=== PATIENT | female | born 1975 | race Caucasian/White ===

== ENCOUNTER 2017-02-19 10:39 | Emergency (ER) | payer OTHER ==
--- NOTE | 2017-02-19 11:23 | ED ---
General Adult HPI - General Chief complaint: Skin/Abscess/Foreign Body Stated complaint: groin pain Time Seen by Provider: 02/19/17 11:14 Source: patient Mode of arrival: ambulatory Limitations: no limitations - History of Present Illness Initial comments: This 41-year-old white female presents complaining of some pains, swelling, and redness present to the left proximal anteromedial leg. It is been present for 3 days. She denies any known inciting incidents or bug bites. It causes her a moderate amount of pain. She denies any previous similar incidents. She denies any fevers or chills. She states that it feels like she has some slight swelling and tenderness in her left groin area as well. No other complaints or modifying factors. - Related Data Home Medications Medication Instructions Recorded Confirmed Cetirizine HCl [Zyrtec] 10 mg PO DAILY 02/19/17 02/19/17 metroNIDAZOLE [Flagyl] 500 mg PO BID 02/19/17 02/19/17 Previous Rx's Medication Instructions Recorded Sulfamethox-Tmp 800-160Mg [Bactrim 1 tab PO Q12HR #20 tab 02/19/17 DS 800-160 mg] traMADol HCl [Ultram] 50 - 100 mg PO Q6H PRN #15 tab 02/19/17 Allergies Allergy/AdvReac Type Severity Reaction Status Date / Time ibuprofen Allergy Swelling Verified 02/19/17 11:07 amoxicillin AdvReac DIZZINESS Verified 02/19/17 11:07 Review of Systems ROS Statement: Those systems with pertinent positive or pertinent negative responses have been documented in the HPI. ROS Other: All systems not noted in ROS Statement are negative. Past Medical History Past Medical History: No Reported History History of Any Multi-Drug Resistant Organisms: None Reported Past Surgical History: Uterine Ablation Additional Past Surgical History / Comment(s): anabella xiong Past Psychological History: No Psychological Hx Reported Smoking Status: Never smoker Past Alcohol Use History: None Reported Past Drug Use History: None Reported General Exam Limitations: no limitations General appearance: alert, in no apparent distress Head exam: Present: atraumatic, normocephalic Eye exam: Absent: conjunctival injection Neck exam: Present: normal inspection Extremities exam: Present: tenderness (There is some tenderness noted to the left proximal anteromedial leg), normal capillary refill. Absent: pedal edema, joint swelling, calf tenderness Neurological exam: Present: alert, oriented X3 Psychiatric exam: Present: normal affect, normal mood Skin exam: Present: intact, rash (There is an erythematous rash noted to the left proximal anteromedial leg. There is some associated ropiness upon palpation in the middle of the erythema likely consistent with a superficial thrombophlebitis. No fluctuance is identified.) Course Vital Signs 02/19/17 10:51 Temperature 99.0 F Pulse Rate 104 H Respiratory 20 Rate Blood Pressure 116/78 O2 Sat by Pulse 97 Oximetry Medical Decision Making - Medical Decision Making The patient was seen and examined. All diagnostics were reviewed. The ultrasound does not show any evidence of DVT. They do note a 2 cm cystic vascular structure as well as some superficial varicose veins and enlarged lymph nodes. Overall, is felt that the patient likely does have a superficial thrombophlebitis. The possibility of some cellulitis is certainly possible as well. It is felt as though she is stable for discharge and that she should follow-up with vascular surgery for recheck. Disposition Clinical Impression: Superficial thrombophlebitis, Cellulitis Disposition: HOME SELF-CARE Condition: Good Instructions: Superficial Thrombophlebitis (ED), Cellulitis (ED) Additional Instructions: Please take an aspirin daily. Prescriptions: Sulfamethox-Tmp 800-160Mg [Bactrim DS 800-160 mg] 1 tab PO Q12HR #20 tab traMADol HCl [Ultram] 50 - 100 mg PO Q6H PRN #15 tab PRN Reason: Pain Referrals: Nonstaff,Physician [Primary Care Provider] - 1-2 days Abdulaziz Long MD [STAFF PHYSICIAN] - 02/22/17 Time of Disposition: 13:04
--- NOTE | 2017-02-19 12:49 | US ---
EXAMINATION TYPE: US venous doppler duplex LE LT DATE OF EXAM: 02/19/2017 12:28 PM COMPARISON: NONE CLINICAL HISTORY: Pain. left groin and upper thigh swelling x 3 days. SIDE PERFORMED: Left TECHNIQUE: The lower extremity deep venous system is examined utilizing real time linear array sonog kaitlyn with graded compression, doppler sonography and color-flow sonography. VESSELS IMAGED: External Iliac Vein (EIV) Common Femoral Vein Deep Femoral Vein Greater Saphenous Vein * Femoral Vein Popliteal Vein Small Saphenous Vein * Proximal Calf Veins (* superficial vessels) Superficial varicosities are noted. Left Leg: Negative for DVT cystic structure left groin =2.6 x 2.2 x 1.4 cm with some vascularity. This was seen at area of swell ing. Also noted, areas of dilated vessels in left upper thigh at area of swelling. IMPRESSION: Grayscale, color doppler, spectral doppler imaging performed of the deep veins of the lo wer extremities. There is normal flow, compressibility, vascular waveforms. No evident deep venous thrombosis. Possible borderline enlarged left groin node. Varicose vein.
[2017-02-19 13:11] VITALS: BP 128/73; PULSE 85; RESP 17; TEMP 98.9
== END 2017-02-19 13:20 | disposition home or self-care (01) ==
LOC: EC 10:39
DX: I80.02 Phlebitis and thrombophlebitis of superficial vessels of left lower extremity (principal); L03.314 Cellulitis of groin; Z79.899 Other long term (current) drug therapy; Z88.0 Allergy status to penicillin; Z88.6 Allergy status to analgesic agent
CPT/HCPCS: 99284

== ENCOUNTER 2017-02-27 01:27 | Inpatient (IN) | payer OTHER ==
[2017-02-27] MEDS ORDERED: SODIUM CHLORIDE 0.9% 1,000 ML IV ONE (01:56)
[2017-02-27] MEDS ORDERED: KETOROLAC 30 MG/ML 1 ML VIAL IVP STA (01:56)
[2017-02-27 02:34] LABS: ALT 64 U/L (9-52); AST 36 U/L (14-36); Alkaline Phosphatase 128 U/L (38-126); Anion Gap 10 mmol/L; Blood Urea Nitrogen 11 mg/dL (7-17); Calcium 9.3 mg/dL (8.4-10.2); Carbon Dioxide 21 mmol/L (22-30); Chloride 106 mmol/L (98-107); Glucose 94 mg/dL (74-99); Non-African American GFR(MDRD) >60 (>60 ml/min/1.73 sqM); Potassium 4.1 mmol/L (3.5-5.1); Sodium 137 mmol/L (137-145); Total Bilirubin 0.3 mg/dL (0.2-1.3); Total Protein 6.4 g/dL (6.3-8.2)
[2017-02-27 02:36] LABS: Basophils % (A) 0 %; CH 32.5; CHCM 34.2; Eosinophils # (A) 0.5 k/uL (0-0.7); Eosinophils % (A) 6 %; HCT 35.9 % (34.0-46.0); HDW 2.12; HGB 12.1 gm/dL (11.4-16.0); Luc # (Auto) 0.22; Luc % (Auto) 3; Lymphocytes # (A) 2.2 k/uL (1.0-4.8); Lymphocytes % (A) 25 %; MCH 32.1 pg (25.0-35.0); MCHC 33.6 g/dL (31.0-37.0); MCV 95.4 fL (80.0-100.0); Mean Platelet Volume 7.5; Monocytes # (A) 0.5 k/uL (0-1.0); Monocytes % (A) 6 %; Neutrophils # (A) 5.5 k/uL (1.3-7.7); Neutrophils % (A) 61 %; RBC 3.77 m/uL (3.80-5.40); RDW 12.9 % (11.5-15.5); WBC (Perox) 9.56
[2017-02-27] MEDS ORDERED: IV VANCOMYCIN PER PHARMACY 1 EACH MISC MISCELLANE PRN (02:53)
[2017-02-27] MEDS ORDERED: VANCOMYCIN 1,750 MG in SODIUM CHLORIDE 0.9% 250 ML IVPB SCH (04:00)
--- NOTE | 2017-02-27 04:19 | ED ---
Extremity Problem HPI - General Source: patient, family Mode of arrival: ambulatory <Maranda Prieto - Last Filed: 02/27/17 04:56> <Arvind Walter - Last Filed: 02/27/17 06:18> - General Chief complaint: Extremity Problem,Nontraumatic Stated complaint: leg infection Time Seen by Provider: 02/27/17 01:44 - History of Present Illness Initial comments: 41-year-old female patient presents to emergency department today for evaluation of erythema, swelling, and possible abscess to the left thigh. Patient states that symptoms started on 02/19/2017. States that the area was swollen and red, so she presented here for evaluation. At that time an ultrasound was done and she was diagnosed with superficial thrombophlebitis with cellulitis. She states that she has been taking her Bactrim as directed, she states she has 3 days left. States she has been taking aspirin as directed by the emergency physician. She states that the area has developed 3 abscesses , one broke open and was draining pus today. She states that the area is more painful and tender to touch. She states she does have an appointment with a vascular surgeon tomorrow for further evaluation however with the new drainage she was concerned about waiting. She states that she feels generally unwell, more tired, and rundown. Patient denies any recent fever, chills, shortness of breath, chest pain, abdominal pain, nausea, vomiting, diarrhea, constipation, back pain, numbness, tingling, weakness, hematuria, headache, visual changes, or any other complaints. (Maranda Prieto) - Related Data Home Medications Medication Instructions Recorded Confirmed Cetirizine HCl [Zyrtec] 10 mg PO DAILY 02/19/17 02/19/17 metroNIDAZOLE [Flagyl] 500 mg PO BID 02/19/17 02/19/17 Previous Rx's Medication Instructions Recorded Sulfamethox-Tmp 800-160Mg [Bactrim 1 tab PO Q12HR #20 tab 02/19/17 DS 800-160 mg] traMADol HCl [Ultram] 50 - 100 mg PO Q6H PRN #15 tab 02/19/17 Allergies Allergy/AdvReac Type Severity Reaction Status Date / Time ibuprofen Allergy Swelling Verified 02/19/17 11:07 amoxicillin AdvReac DIZZINESS Verified 02/19/17 11:07 Review of Systems ROS Other: All systems not noted in ROS Statement are negative. <Maranda Prieto - Last Filed: 02/27/17 04:56> ROS Other: All systems not noted in ROS Statement are negative. <Arvind Walter - Last Filed: 02/27/17 06:18> ROS Statement: Those systems with pertinent positive or pertinent negative responses have been documented in the HPI. Past Medical History Past Medical History: No Reported History History of Any Multi-Drug Resistant Organisms: None Reported Past Surgical History: Uterine Ablation Additional Past Surgical History / Comment(s): marina-anabella lewis Past Psychological History: No Psychological Hx Reported Smoking Status: Never smoker Past Alcohol Use History: None Reported Past Drug Use History: None Reported <Maranda Prieto - Last Filed: 02/27/17 04:56> General Exam General appearance: alert, in no apparent distress Eye exam: Present: normal appearance, PERRL, EOMI. Absent: scleral icterus, conjunctival injection, periorbital swelling ENT exam: Present: normal exam, normal oropharynx, mucous membranes moist Neck exam: Present: normal inspection. Absent: tenderness, meningismus, lymphadenopathy Respiratory exam: Present: normal lung sounds bilaterally. Absent: respiratory distress, wheezes, rales, rhonchi, stridor Cardiovascular Exam: Present: regular rate, normal rhythm, normal heart sounds. Absent: systolic murmur, diastolic murmur, rubs, gallop, clicks Extremities exam: Present: full ROM, tenderness, normal capillary refill, other (Anteromedial aspect of the left upper leg exhibits a large area of erythema, swelling, and 3 areas of abscess. There is some rope type induration noted in area of erythema. One area of abscess is draining purulent bloody drainage. Enlarged palpable lymph node to the left inguinal region.). Absent: normal inspection, pedal edema, joint swelling, calf tenderness Neurological exam: Present: alert, oriented X3, CN II-XII intact Psychiatric exam: Present: normal affect, normal mood Skin exam: Present: warm, dry, intact, normal color. Absent: rash <Maranda Prieto - Last Filed: 02/27/17 04:56> Medical Decision Making - Lab Data Result diagrams: 02/27/17 02:16 02/27/17 02:16 <Maranda Prieto - Last Filed: 02/27/17 04:56> - Lab Data Result diagrams: 02/27/17 02:16 02/27/17 02:16 <Arvind Walter - Last Filed: 02/27/17 06:18> - Medical Decision Making 41-year-old female patient presented for evaluation of large area of erythema, swelling, and abscess to the left nicko-medial thigh. Area does appear to be a large abscess. Drainage from abscess was cultured. Patient was started on vancomycin. Labs were obtained, white blood cell count is normal. Blood cultures were obtained. My attending Dr. Walter did speak to general surgery Dr. Russo who will admit the patient for further evaluation. (Maranda Prieto) I saw this patient in conjunction with the physician drug safety assistant. I performed independent history and physical exam. Agree with case management. (Arvind Walter) - Lab Data Lab Results 02/27/17 02/27/17 Range/Units 02:16 02:16 WBC 9.0 (3.8-10.6) k/uL RBC 3.77 L (3.80-5.40) m/uL Hgb 12.1 (11.4-16.0) gm/dL Hct 35.9 (34.0-46.0) % MCV 95.4 (80.0-100.0) fL MCH 32.1 (25.0-35.0) pg MCHC 33.6 (31.0-37.0) g/dL RDW 12.9 (11.5-15.5) % Plt Count 393 (150-450) k/uL Neutrophils % 61 % Lymphocytes % 25 % Monocytes % 6 % Eosinophils % 6 % Basophils % 0 % Neutrophils # 5.5 (1.3-7.7) k/uL Lymphocytes # 2.2 (1.0-4.8) k/uL Monocytes # 0.5 (0-1.0) k/uL Eosinophils # 0.5 (0-0.7) k/uL Basophils # 0.0 (0-0.2) k/uL Sodium 137 (137-145) mmol/L Potassium 4.1 (3.5-5.1) mmol/L Chloride 106 (98-107) mmol/L Carbon Dioxide 21 L (22-30) mmol/L Anion Gap 10 mmol/L BUN 11 (7-17) mg/dL Creatinine 0.80 (0.52-1.04) mg/dL Est GFR (MDRD) Af Amer >60 (>60 ml/min/1.73 sqM) Est GFR (MDRD) Non-Af >60 (>60 ml/min/1.73 sqM) Glucose 94 (74-99) mg/dL Calcium 9.3 (8.4-10.2) mg/dL Total Bilirubin 0.3 (0.2-1.3) mg/dL AST 36 (14-36) U/L ALT 64 H (9-52) U/L Alkaline Phosphatase 128 H (38-126) U/L Total Protein 6.4 (6.3-8.2) g/dL Albumin 3.6 (3.5-5.0) g/dL Disposition Decision to Admit Reason: Admit from EC Decision Date: 02/27/17 Decision Time: 04:57 <Maranda Prieto - Last Filed: 02/27/17 04:56> <Arvind Walter - Last Filed: 02/27/17 06:18> Clinical Impression: Abscess of left thigh Disposition: ADMITTED IP TO THIS [facility] Condition: Fair
[2017-02-27] MEDS ORDERED: ACETAMINOPHEN TAB 325 MG TAB PO PRN (04:55)
[2017-02-27] MEDS ORDERED: HYDROcodone/APAP 5-325MG 1 EACH TAB PO PRN (04:55)
[2017-02-27] MEDS ORDERED: NALOXONE 0.4 MG/ML 1 ML VIAL IV PRN (04:55)
[2017-02-27] MEDS: SODIUM CHLORIDE 0.9% 1,000 ML IV SCH (05:39)
[2017-02-27] MEDS ORDERED: MORPHINE SULFATE 4 MG/ML SYRINGE IV STA (06:17)
--- NOTE | 2017-02-27 10:12 | P.GSHP ---
History of Present Illness H&P Date: 02/27/17 Chief Complaint: Abscess left upper thigh 41-year-old female presented on the day of admission to the emergency room to be evaluated for increased redness swelling left thigh left inguinal area. Patient stated the symptoms started on February 19. She stated the area was red and swollen and did present to [facility] emergency room to be evaluated. Patient stated that she was told she had superficial thrombophlebitis with cellulitis involving the left upper thigh per Doppler studies the left leg was negative for evidence of a DVT. It did show a cystic' s structure in the left groin with area of swelling was given a prescription for Bactrim. Patient stated she did comply did take the Bactrim and has 3 days left. Patient states that she has not been experiencing any fever chills. Patient denies any trauma to the left upper thigh Emergency room the white count was 9. Electrolytes were within normal limits. On presentation the left upper thigh 3 firm areas noted a firm nodular area noted in the left inguinal area. Cellulitis noted. The third area on the left upper thigh is open serous drainage noted. Patient states tender to the touch. Additionally patient states that she has an appointment with the vascular surgeon tomorrow but could not wait because the symptoms were more symptomatic patient denies any prior episodes. Patient denies any recent hospitalization. Patient has no significant past medical history. Patient states that she's had a prior cholecystectomy, and a uterine ablation , also NovaSure sure implant for control implanted in 2013 - Review of Systems Comment: Essentially unremarkable except as mentioned in the present illness Past Medical History Past Medical History: No Reported History History of Any Multi-Drug Resistant Organisms: None Reported Past Surgical History: Cholecystectomy, Tonsillectomy, Uterine Ablation Additional Past Surgical History / Comment(s): e-surefedeasure Past Anesthesia/Blood Transfusion Reactions: No Reported Reaction Past Psychological History: Anxiety Smoking Status: Never smoker Past Alcohol Use History: None Reported Past Drug Use History: None Reported - Past Family History Father Family Medical History: Coronary Artery Disease (CAD) Medications and Allergies Home Medications Medication Instructions Recorded Confirmed Type Sulfamethox-Tmp 800-160Mg [Bactrim 1 tab PO Q12HR #20 tab 02/19/17 02/27/17 Rx DS 800-160 mg] Allergies Allergy/AdvReac Type Severity Reaction Status Date / Time ibuprofen Allergy Swelling Verified 02/27/17 07:43 amoxicillin AdvReac DIZZINESS Verified 02/27/17 07:43 Surgical - Exam Vital Signs Temp Pulse Resp BP Pulse Ox 98.0 F 70 16 138/71 98 02/27/17 01:30 02/27/17 01:30 02/27/17 01:30 02/27/17 01:30 02/27/17 01:30 Physical exam 41-year-old female sitting up in bed pleasant talkative oriented 3 Lungs essentially clear adequate air movement on room air Heart S1-S2 audible and regular Abdomen soft nondistended PRESENT no reports of nausea vomiting no rebound no palpable organomegaly Extremities on the left bottom of the foot a dry callus area noted the left inguinal area firm nodule noted 3 abscess noted to the left upper thigh the third one proximal to the knee open draining serous drainage mild cellulitis with redness noted around the left upper thigh extending posterior Results - Labs 02/27/17 02:16 02/27/17 02:16 Abnormal Lab Results - Last 24 Hours (Table) 02/27/17 02/27/17 Range/Units 02:16 02:16 RBC 3.77 L (3.80-5.40) m/uL Carbon Dioxide 21 L (22-30) mmol/L ALT 64 H (9-52) U/L Alkaline Phosphatase 128 H (38-126) U/L Diabetes panel 02/27/17 Range/Units 02:16 Sodium 137 (137-145) mmol/L Potassium 4.1 (3.5-5.1) mmol/L Chloride 106 (98-107) mmol/L Carbon Dioxide 21 L (22-30) mmol/L BUN 11 (7-17) mg/dL Creatinine 0.80 (0.52-1.04) mg/dL Glucose 94 (74-99) mg/dL Calcium 9.3 (8.4-10.2) mg/dL AST 36 (14-36) U/L ALT 64 H (9-52) U/L Alkaline Phosphatase 128 H (38-126) U/L Total Protein 6.4 (6.3-8.2) g/dL Albumin 3.6 (3.5-5.0) g/dL Calcium panel 02/27/17 Range/Units 02:16 Calcium 9.3 (8.4-10.2) mg/dL Albumin 3.6 (3.5-5.0) g/dL Pituitary panel 02/27/17 Range/Units 02:16 Sodium 137 (137-145) mmol/L Potassium 4.1 (3.5-5.1) mmol/L Chloride 106 (98-107) mmol/L Carbon Dioxide 21 L (22-30) mmol/L BUN 11 (7-17) mg/dL Creatinine 0.80 (0.52-1.04) mg/dL Glucose 94 (74-99) mg/dL Calcium 9.3 (8.4-10.2) mg/dL Adrenal panel 02/27/17 Range/Units 02:16 Sodium 137 (137-145) mmol/L Potassium 4.1 (3.5-5.1) mmol/L Chloride 106 (98-107) mmol/L Carbon Dioxide 21 L (22-30) mmol/L BUN 11 (7-17) mg/dL Creatinine 0.80 (0.52-1.04) mg/dL Glucose 94 (74-99) mg/dL Calcium 9.3 (8.4-10.2) mg/dL Total Bilirubin 0.3 (0.2-1.3) mg/dL AST 36 (14-36) U/L ALT 64 H (9-52) U/L Alkaline Phosphatase 128 H (38-126) U/L Total Protein 6.4 (6.3-8.2) g/dL Albumin 3.6 (3.5-5.0) g/dL Assessment and Plan Plan: Impression Present on admission cellulitis with abscess left upper thigh failed outpatient treatment on Bactrim nontraumatic Doppler of the left lower extremity February 19 no evidence of a DVT Obesity BMI 35 Plan IV vancomycin as ordered Pain control Consult infectious disease Dr. Arias recommendations antibiotic and treatment DVT and GI prophylaxis Monitor labs Further surgical recommendations pending The above impression and plan of care have been discussed and directed by signing physician. Chaya Liao nurse practitioner acting as scribe for signing physician.
[2017-02-27] MEDS: HEPARIN SODIUM,PORCINE 5,000 UNIT/ML 1 ML VIAL SQ SCH (12:01)
[2017-02-27] MEDS: KETOROLAC 30 MG/ML 1 ML VIAL IVP SCH ×2 (12:01→18:20)
[2017-02-27] MEDS: FAMOTIDINE 20 MG TAB PO SCH ×2 (12:02→19:59)
[2017-02-27] MEDS: VANCOMYCIN 1,750 MG in SODIUM CHLORIDE 0.9% 250 ML IVPB SCH (12:02)
[2017-02-27] MEDS ORDERED: HYDROmorphone 1 MG/ML 1 ML SYRINGE IM STA (12:58)
[2017-02-27] MEDS ORDERED: LIDOCAINE 1% INJ 10MG/ML (20 ML MDV) SQ ONE (13:00)
[2017-02-27] MEDS ORDERED: ONDANSETRON 4 MG/2 ML VIAL IVP PRN (13:20)
[2017-02-27] MEDS ORDERED: traMADol 50 MG TAB PO PRN (14:19)
[2017-02-27] MEDS ORDERED: HYDROmorphone 1 MG/ML 1 ML SYRINGE IVP PRN (14:21)
[2017-02-27] MEDS ORDERED: ceFAZolin 2 GM in SODIUM CHLORIDE 0.9% 100 ML IVPB SCH (16:00)
--- NOTE | 2017-02-27 21:39 | P.CONS ---
History of Present Illness - Reason for Consult Consult date: 02/27/17 - Chief Complaint Abscess left leg - History of Present Illness 41-year-old woman resents to emergency center because of significant difficulties with her left leg. The patient relates that she's been having difficulty since early in February with her left leg. She developed some swelling into the left groin area as well as some small lesions on the leg. She was evaluated in the emergency center duplex was negative for deep venous thrombosis likely had a mild enlarged lymph node as well as evidence of some varicosities. Treated with some antibiotic therapy with sulfa. Despite multiple days of sulfa she is now worsened. She developed multiple abscesses to become increasing painful on the medial aspect of the thigh. The patient relates she does shave her legs. We'll spend several weeks and actually doesn' t shave up on this part of her thigh. 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 She does not shower at the facility. But she does utilize the restroom. Does not recall any specific trauma to the area. Does have animal exposures only to a rabbit. The patient cannot recall coming in contact with any persons that have staph or MRSA infections. His significant other who is been healthy. Review of Systems Patient denies fever chills rigors or sweats HEENT:Denies headache or acute visual change. Denies sinus or mouth discomforts. Denies neck stiffness or pain. Denies significant oral cavity pain. Denies difficulty on swallowing. Lungs: Denies significant shortness of breath, cough, sputum production, or hemoptysis. Cardiovascular: Denies significant shortness of breath, chest pain, chest wall pain, orthopnea, dyspnea on exertion, syncope Gastrointestinal:Denies nausea, vomiting, diarrhea, constipation, hematemesis, melena, hematochezia. No no significant change of bowel habit noticed. Musculoskeletal: denies significant myalgias or arthralgias. No new joint swelling. Denies new back pain. Skin: As per the HPI Neuro: Denies headache or visual change. Denies any new onset weakness or difficulty with ambulation. Denies falls or seizures. Psychiatric:Denies anxiety or depression. Endocrine: Denies significant fatigue, denies significant weight loss or weight gain. Past Medical History Past Medical History: No Reported History History of Any Multi-Drug Resistant Organisms: None Reported Past Surgical History: Cholecystectomy, Tonsillectomy, Uterine Ablation Additional Past Surgical History / Comment(s): anabella xiong Past Anesthesia/Blood Transfusion Reactions: No Reported Reaction Past Psychological History: Anxiety Additional Psychological History / Comment(s): Single but lives with a significant other. No children. 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 No international travel. No experience. No tobacco use. No significant alcohol or recreational drug use. Family history positive for coronary artery disease in her father Smoking Status: Never smoker Past Alcohol Use History: None Reported Past Drug Use History: None Reported - Past Family History Father Family Medical History: Coronary Artery Disease (CAD) Medications and Allergies Home Medications and Allergies Comment(s): Current Medications Acetaminophen (Tylenol Tab) 650 mg PO Q6HR PRN PRN Reason: Mild Pain or Fever > 100.5 Hydrocodone Bitart/Acetaminophen (Moore 5-325) 1 each PO Q4HR PRN PRN Reason: Moderate Pain Famotidine (Pepcid) 20 mg PO BID [facility] Last Admin: 02/27/17 19:59 Dose: 20 mg Heparin Sodium (Porcine) (Heparin) 5,000 unit SQ Q8HR [facility] Last Admin: 02/27/17 12:01 Dose: 5,000 unit Hydromorphone HCl (Dilaudid) 0.5 mg IVP Q4HR PRN PRN Reason: Pain Sodium Chloride (Saline 0.9%) 1,000 mls @ 75 mls/hr IV .[id number] [facility] Last Admin: 02/27/17 05:39 Dose: 75 mls/hr Vancomycin HCl 1,750 mg/ (Sodium Chloride) 250 mls @ 125 mls/hr IVPB Q12H [facility] Last Admin: 02/27/17 12:02 Dose: 125 mls/hr Cefazolin Sodium 2 gm/ Sodium (Chloride) 100 mls @ 100 mls/hr IVPB Q8H [facility] Ketorolac Tromethamine (Toradol) 30 mg IVP Q6HR [facility] Stop: 02/28/17 18:50 Last Admin: 02/27/17 18:20 Dose: 30 mg Multivitamins (Theragran) 1 each PO DAILY@1200 BENJIE Naloxone HCl (Narcan) 0.2 mg IV Q2M PRN PRN Reason: Opioid Reversal Ondansetron HCl (Zofran) 4 mg IVP Q6HR PRN PRN Reason: Nausea And Vomiting Last Admin: 02/27/17 18:26 Dose: 4 mg Tramadol HCl (Ultram) 50 mg PO QID PRN PRN Reason: Analgesia Home Medications Medication Instructions Recorded Confirmed Type Sulfamethox-Tmp 800-160Mg [Bactrim 1 tab PO Q12HR #20 tab 02/19/17 02/27/17 Rx DS 800-160 mg] Allergies Allergy/AdvReac Type Severity Reaction Status Date / Time ibuprofen Allergy Swelling Verified 02/27/17 07:43 amoxicillin AdvReac DIZZINESS Verified 02/27/17 07:43 Physical Exam Vitals: Vital Signs Temp Pulse Pulse Pulse Pulse Resp BP 02/27/17 20:06 98 F 61 20 02/27/17 16:35 97.4 F L 54 L 20 02/27/17 14:33 98.4 F 58 L 16 02/27/17 08:58 97.7 F 62 16 02/27/17 06:20 98.2 F 72 20 02/27/17 06:15 98.2 F 72 20 02/27/17 05:30 97.6 F 74 18 141/76 02/27/17 05:10 65 16 142/64 02/27/17 03:50 64 18 140/81 02/27/17 02:40 60 18 134/87 02/27/17 01:30 98.0 F 70 16 138/71 BP BP Pulse Ox 02/27/17 20:06 126/87 97 02/27/17 16:35 104/70 95 02/27/17 14:33 124/71 96 02/27/17 08:58 121/73 96 02/27/17 06:20 130/75 100 02/27/17 06:15 130/75 100 02/27/17 05:30 98 02/27/17 05:10 97 02/27/17 03:50 98 02/27/17 02:40 98 02/27/17 01:30 98 Intake and Output 02/27/17 02/27/17 02/27/17 06:59 14:59 22:59 Intake Total 120 240 Balance 120 240 Intake: Oral 120 240 Other: # Voids 1 2 1 Weight 108.862 kg 41-year-old presents to the emergency center with significant increasing pain and swelling to the left thigh HEENT: Anicteric conjunctiva are pink and moist nasal mucosa grossly intact without significant lesions, there is no thrush. Neck: The neck is supple without significant lymphadenopathy or thyromegaly. Lungs: Good bilateral air entry without significant crackles or wheezing. There is no significant bronchial sounds. There is no egophony or dullness. Heart: Regular rate and rhythm with an audible S1-S2, no S3 no S4. There is no significant murmur click or rub, PMI was nondisplaced. Abdomen: Positive bowel sounds soft and nontender without palpable masses or organomegaly. There was no guarding or rebound. Extremities: The upper extremities have excellent pulses they are symmetric, no significant petechiae or telangiectasia. No splinter hemorrhages were noted. The right lower extremity has no abnormalities Left lower extremity on the thigh medial aspect is evidence of the 3 areas of pustules. The midpoint has the largest area of induration and pustules. It is extremely tender. There is dense erythema surrounding this area. There is tenderness into the left groin with a small enlarged lymph node. No other abnormal lymph nodes are noted no other skin lesions are seen Neuro: Awake alert oriented to person place and time. There are no acute new gross focal sensory motor deficits. Results CBC & Chem 7: 02/27/17 02:16 02/27/17 02:16 Labs: Abnormal Lab Results - Last 24 Hours (Table) 02/27/17 02/27/17 Range/Units 02:16 02:16 RBC 3.77 L (3.80-5.40) m/uL Carbon Dioxide 21 L (22-30) mmol/L ALT 64 H (9-52) U/L Alkaline Phosphatase 128 H (38-126) U/L Microbiology - Last 24 Hours (Table) 02/27/17 14:00 Wound Culture - Preliminary Incision 02/27/17 14:00 Anaerobic Culture - Preliminary Thigh - Left 02/27/17 03:00 Wound Culture - Preliminary Thigh - Left Laboratory Results WBC 9.0 k/uL (3.8-10.6) 02/27/17 02:16 RBC 3.77 m/uL (3.80-5.40) L 02/27/17 02:16 Hgb 12.1 gm/dL (11.4-16.0) 02/27/17 02:16 Hct 35.9 % (34.0-46.0) 02/27/17 02:16 MCV 95.4 fL (80.0-100.0) 02/27/17 02:16 MCH 32.1 pg (25.0-35.0) 02/27/17 02:16 MCHC 33.6 g/dL (31.0-37.0) 02/27/17 02:16 RDW 12.9 % (11.5-15.5) 02/27/17 02:16 Plt Count 393 k/uL (150-450) 02/27/17 02:16 Neutrophils % 61 % 02/27/17 02:16 Lymphocytes % 25 % 02/27/17 02:16 Monocytes % 6 % 02/27/17 02:16 Eosinophils % 6 % 02/27/17 02:16 Basophils % 0 % 02/27/17 02:16 Neutrophils # 5.5 k/uL (1.3-7.7) 02/27/17 02:16 Lymphocytes # 2.2 k/uL (1.0-4.8) 02/27/17 02:16 Monocytes # 0.5 k/uL (0-1.0) 02/27/17 02:16 Eosinophils # 0.5 k/uL (0-0.7) 02/27/17 02:16 Basophils # 0.0 k/uL (0-0.2) 02/27/17 02:16 Sodium 137 mmol/L (137-145) 02/27/17 02:16 Potassium 4.1 mmol/L (3.5-5.1) 02/27/17 02:16 Chloride 106 mmol/L (98-107) 02/27/17 02:16 Carbon Dioxide 21 mmol/L (22-30) L 02/27/17 02:16 Anion Gap 10 mmol/L 02/27/17 02:16 BUN 11 mg/dL (7-17) 02/27/17 02:16 Creatinine 0.80 mg/dL (0.52-1.04) 02/27/17 02:16 Est GFR (MDRD) Af Amer >60 (>60 ml/min/1.73 sqM) 02/27/17 02:16 Est GFR (MDRD) Non-Af >60 (>60 ml/min/1.73 sqM) 02/27/17 02:16 Glucose 94 mg/dL (74-99) 02/27/17 02:16 Calcium 9.3 mg/dL (8.4-10.2) 02/27/17 02:16 Total Bilirubin 0.3 mg/dL (0.2-1.3) 02/27/17 02:16 AST 36 U/L (14-36) 02/27/17 02:16 ALT 64 U/L (9-52) H 02/27/17 02:16 Alkaline Phosphatase 128 U/L (38-126) H 02/27/17 02:16 Total Protein 6.4 g/dL (6.3-8.2) 02/27/17 02:16 Albumin 3.6 g/dL (3.5-5.0) 02/27/17 02:16 Microbiology 02/27/17 14:00 Incision Wound Culture - Preliminary 02/27/17 14:00 Thigh - Left Anaerobic Culture - Preliminary 02/27/17 03:00 Thigh - Left Wound Culture - Preliminary Assessment and Plan (1) Abscess of left thigh Narrative/Plan: 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 She relates in the past she's been told that she has significant venous stasis and varicose veins. She does try to wear some stockings but the thigh highs often fall down. Current. Is loose and has not been helping. She does relate that she shaves occasionally. But never stays this high and her thighs and does not shave her pubic area. Advice about razor care that was given with the current process that appears to be staphylococcal or streptococcal in nature She'll be seen by the surgeons today and bedside debridement is planned and deep culture should be obtained. For antimicrobial therapy was utilized vancomycin and cefazolin for now until we have further data. She failed Bactrim therapy which would make the possibility of a streptococcal infection more likely this is often is not effective. Cultures will further help drive therapy. As we'll also post- incision and drainage device for wound care depending on the findings. Multivitamin with zinc is added She is up-to-date with her tetanus vaccine Pain control is adequate at this time. We'll follow after her surgical incision and drainage. Status: Acute (2) Cellulitis Status: Acute (3) Failure of outpatient treatment Status: Acute
[2017-02-27] MEDS: ceFAZolin 2 GM in SODIUM CHLORIDE 0.9% 100 ML IVPB SCH (22:24)
[2017-02-28] MEDS: HEPARIN SODIUM,PORCINE 5,000 UNIT/ML 1 ML VIAL SQ SCH ×4 (00:35→23:51)
[2017-02-28] MEDS: VANCOMYCIN 1,750 MG in SODIUM CHLORIDE 0.9% 250 ML IVPB SCH ×3 (00:35→23:52)
[2017-02-28] MEDS: KETOROLAC 30 MG/ML 1 ML VIAL IVP SCH ×4 (00:35→17:55)
[2017-02-28] MEDS: SODIUM CHLORIDE 0.9% 1,000 ML IV SCH ×3 (00:36→23:55)
[2017-02-28 07:45] LABS: Basophils % (A) 0 %; CH 32.2; Eosinophils # (A) 0.4 k/uL (0-0.7); Eosinophils % (A) 8 %; HCT 34.7 % (34.0-46.0); HDW 2.13; HGB 11.2 gm/dL (11.4-16.0); Luc # (Auto) 0.15; Luc % (Auto) 3; Lymphocytes % (A) 42 %; MCH 31.7 pg (25.0-35.0); MCHC 32.4 g/dL (31.0-37.0); MCV 97.9 fL (80.0-100.0); Mean Platelet Volume 7.7; Monocytes # (A) 0.3 k/uL (0-1.0); Monocytes % (A) 6 %; Neutrophils % (A) 42 %; RBC 3.54 m/uL (3.80-5.40); RDW 13.2 % (11.5-15.5); WBC 4.9 k/uL (3.8-10.6); WBC (Perox) 5.18
[2017-02-28] MEDS: FAMOTIDINE 20 MG TAB PO SCH ×2 (08:02→22:22)
[2017-02-28] MEDS: ceFAZolin 2 GM in SODIUM CHLORIDE 0.9% 100 ML IVPB SCH ×3 (08:02→22:00)
[2017-02-28 08:07] LABS: ALT 65 U/L (9-52); AST 52 U/L (14-36); Alkaline Phosphatase 160 U/L (38-126); Anion Gap 8 mmol/L; Blood Urea Nitrogen 9 mg/dL (7-17); Calcium 8.6 mg/dL (8.4-10.2); Carbon Dioxide 23 mmol/L (22-30); Chloride 108 mmol/L (98-107); Glucose 83 mg/dL (74-99); Non-African American GFR(MDRD) >60 (>60 ml/min/1.73 sqM); Potassium 5.1 mmol/L (3.5-5.1); Sodium 139 mmol/L (137-145); Total Bilirubin 0.2 mg/dL (0.2-1.3); Total Protein 5.7 g/dL (6.3-8.2)
--- NOTE | 2017-02-28 08:59 | P.OP ---
Date of Procedure: 02/27/17 Preoperative Diagnosis: Left thigh abscess Postoperative Diagnosis: Left thigh abscess Procedure(s) Performed: Incision and drainage of left thigh abscess 2 Anesthesia: local Surgeon: Sander Russo Pathology: other (Culture) Condition: stable Disposition: floor Description of Procedure: The patient's placed on her bed in supine position. Her left thigh was prepped and draped usual sterile fashion. The abscess sites were anesthetized 1% local Xylocaine. Patient had a 2 cm abscess located in the mid medial left thigh and another 1 cm abscess located. Aspect of the medial thigh. After the skin was anesthetized. Using 11 blade incision was made over each abscess. A small amount of purulent fluid was withdrawn from each abscess area of the area was cultured. Sterile dressing was applied. Patient tolerated procedure well.
--- NOTE | 2017-02-28 11:59 | P.PN ---
Subjective 41-year-old female being seen on rounds this morning. Currently resting in bed. Patient is status post incision and drainage of the left thigh abscess 2 done on February 27 at the bedside. Dressing to surgical site dry. being followed by infectious disease Dr. Arias. Wound cultures currently staph aureus pending Objective - Vital Signs Vital signs: Vital Signs Temp 98.4 F 02/28/17 08:45 Pulse 69 02/28/17 08:45 Resp 22 02/28/17 08:45 BP 129/86 02/28/17 08:45 Pulse Ox 96 02/28/17 08:45 Intake & Output 02/27/17 02/28/17 02/28/17 18:59 06:59 18:59 Intake Total 120 580 Balance 120 580 Intake: Oral 120 580 Other: # Voids 2 1 - Exam Physical exam 41-year-old female sitting up in bed does not appear in any acute distress states there is less discomfort in the left upper thigh Lungs essentially clear with adequate air movement on room air Heart S1-S2 audible and regular denying chest pain Abdomen obese soft nontender denies any nausea vomiting no stooling no difficulty in urinating tolerating diet nondistended Extremities upper extremities unremarkable the left upper thigh no increase in redness from the reference markings dressing to the left upper thigh dry no pedal edema noted - Labs CBC & Chem 7: 02/28/17 07:06 02/28/17 07:06 Labs: Abnormal Lab Results - Last 24 Hours (Table) 02/28/17 02/28/17 Range/Units 07:06 07:06 RBC 3.54 L (3.80-5.40) m/uL Hgb 11.2 L (11.4-16.0) gm/dL Chloride 108 H (98-107) mmol/L AST 52 H (14-36) U/L ALT 65 H (9-52) U/L Alkaline Phosphatase 160 H (38-126) U/L Total Protein 5.7 L (6.3-8.2) g/dL Albumin 3.1 L (3.5-5.0) g/dL Microbiology - Last 24 Hours (Table) 02/27/17 14:00 Gram Stain - Preliminary Incision Wound Culture - Preliminary Presumptive Staph aureus 02/27/17 03:00 Gram Stain - Preliminary Thigh - Left Wound Culture - Preliminary Presumptive Staph aureus 02/27/17 02:16 Blood Culture - Preliminary Blood No Growth after 24 hours 02/27/17 14:00 Anaerobic Culture - Preliminary Thigh - Left Assessment and Plan Plan: Impression Present on admission cellulitis with abscess left upper thigh failed outpatient treatment on Bactrim nontraumatic Doppler of the left lower extremity February 19 no evidence of a DVT Obesity BMI 35 Status post incision and drainage of the left thigh abscess 2 done at the bedside on February 27 Plan Follow-up on pending wound cultures IV vancomycin as ordered Pain control IV antibiotic per infectious disease recommendations Wound care per infectious disease recommendations DVT and GI prophylaxis Monitor labs Further surgical recommendations pending The above impression and plan of care have been discussed and directed by signing physician. Chaya Liao nurse practitioner acting as scribe for signing physician.
[2017-02-28] MEDS: MULTIVITAMINS, THERA 1 EACH TAB PO SCH (12:01)
--- NOTE | 2017-02-28 22:14 | P.PN ---
Subjective Principal diagnosis: Abscess left thigh 41-year-old woman resents to emergency center because of significant difficulties with her left leg. The patient relates that she's been having difficulty since early in February with her left leg. She developed some swelling into the left groin area as well as some small lesions on the leg. She was evaluated in the emergency center duplex was negative for deep venous thrombosis likely had a mild enlarged lymph node as well as evidence of some varicosities. Treated with some antibiotic therapy with sulfa. Despite multiple days of sulfa she is now worsened. She developed multiple abscesses to become increasing painful on the medial aspect of the thigh. The patient relates she does shave her legs. We'll spend several weeks and actually doesn' t shave up on this part of her thigh. 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 She does not shower at the facility. But she does utilize the restroom. Does not recall any specific trauma to the area. Does have animal exposures only to a rabbit. The patient cannot recall coming in contact with any persons that have staph or MRSA infections. His significant other who is been healthy. Fells better today but is having some discomfort and itching but no fevers today. Has been seen by surgery with no plans for more surgery. Objective - Vital Signs Vital signs: Vital Signs Temp 98.1 F 02/28/17 16:20 Pulse 58 L 02/28/17 20:32 Resp 16 02/28/17 20:32 BP 129/85 02/28/17 20:32 Pulse Ox 99 02/28/17 20:32 Intake & Output 02/28/17 02/28/17 03/01/17 06:59 18:59 06:59 Intake Total 580 120 Balance 580 120 Intake: Oral 580 120 Other: # Voids 1 2 - Exam 41-year-old presents to the emergency center with significant increasing pain and swelling to the left thigh HEENT: Anicteric conjunctiva are pink and moist nasal mucosa grossly intact without significant lesions, there is no thrush. Neck: The neck is supple without significant lymphadenopathy or thyromegaly. Lungs: Good bilateral air entry without significant crackles or wheezing. There is no significant bronchial sounds. There is no egophony or dullness. Heart: Regular rate and rhythm with an audible S1-S2, no S3 no S4. There is no significant murmur click or rub, PMI was nondisplaced. Abdomen: Positive bowel sounds soft and nontender without palpable masses or organomegaly. There was no guarding or rebound. Extremities: The upper extremities have excellent pulses they are symmetric, no significant petechiae or telangiectasia. No splinter hemorrhages were noted. The right lower extremity has no abnormalities Left lower extremity on the thigh medial aspect is evidence of the 3 areas of pustules. The midpoint has the largest area of induration and pustules. The area is now after incision and drainage and is improved especially the erythema. There is tenderness into the left groin with a small enlarged lymph node. No other abnormal lymph nodes are noted no other skin lesions are seen Neuro: Awake alert oriented to person place and time. There are no acute new gross focal sensory motor deficits. - Labs CBC & Chem 7: 02/28/17 07:06 02/28/17 07:06 Labs: Abnormal Lab Results - Last 24 Hours (Table) 02/28/17 02/28/17 Range/Units 07:06 07:06 RBC 3.54 L (3.80-5.40) m/uL Hgb 11.2 L (11.4-16.0) gm/dL Chloride 108 H (98-107) mmol/L AST 52 H (14-36) U/L ALT 65 H (9-52) U/L Alkaline Phosphatase 160 H (38-126) U/L Total Protein 5.7 L (6.3-8.2) g/dL Albumin 3.1 L (3.5-5.0) g/dL Microbiology - Last 24 Hours (Table) 02/27/17 14:00 Gram Stain - Preliminary Incision Wound Culture - Preliminary Presumptive Staph aureus 02/27/17 03:00 Gram Stain - Preliminary Thigh - Left Wound Culture - Preliminary Presumptive Staph aureus 02/27/17 02:16 Blood Culture - Preliminary Blood No Growth after 24 hours 02/27/17 14:00 Anaerobic Culture - Preliminary Thigh - Left Laboratory Results WBC 4.9 k/uL (3.8-10.6) 02/28/17 07:06 RBC 3.54 m/uL (3.80-5.40) L 02/28/17 07:06 Hgb 11.2 gm/dL (11.4-16.0) L 02/28/17 07:06 Hct 34.7 % (34.0-46.0) 02/28/17 07:06 MCV 97.9 fL (80.0-100.0) 02/28/17 07:06 MCH 31.7 pg (25.0-35.0) 02/28/17 07:06 MCHC 32.4 g/dL (31.0-37.0) 02/28/17 07:06 RDW 13.2 % (11.5-15.5) 02/28/17 07:06 Plt Count 344 k/uL (150-450) 02/28/17 07:06 Neutrophils % 42 % 02/28/17 07:06 Lymphocytes % 42 % 02/28/17 07:06 Monocytes % 6 % 02/28/17 07:06 Eosinophils % 8 % 02/28/17 07:06 Basophils % 0 % 02/28/17 07:06 Neutrophils # 2.0 k/uL (1.3-7.7) 02/28/17 07:06 Lymphocytes # 2.0 k/uL (1.0-4.8) 02/28/17 07:06 Monocytes # 0.3 k/uL (0-1.0) 02/28/17 07:06 Eosinophils # 0.4 k/uL (0-0.7) 02/28/17 07:06 Basophils # 0.0 k/uL (0-0.2) 02/28/17 07:06 Sodium 139 mmol/L (137-145) 02/28/17 07:06 Potassium 5.1 mmol/L (3.5-5.1) 02/28/17 07:06 Chloride 108 mmol/L (98-107) H 02/28/17 07:06 Carbon Dioxide 23 mmol/L (22-30) 02/28/17 07:06 Anion Gap 8 mmol/L 02/28/17 07:06 BUN 9 mg/dL (7-17) 02/28/17 07:06 Creatinine 0.83 mg/dL (0.52-1.04) 02/28/17 07:06 Est GFR (MDRD) Af Amer >60 (>60 ml/min/1.73 sqM) 02/28/17 07:06 Est GFR (MDRD) Non-Af >60 (>60 ml/min/1.73 sqM) 02/28/17 07:06 Glucose 83 mg/dL (74-99) 02/28/17 07:06 Calcium 8.6 mg/dL (8.4-10.2) 02/28/17 07:06 Total Bilirubin 0.2 mg/dL (0.2-1.3) 02/28/17 07:06 AST 52 U/L (14-36) H 02/28/17 07:06 ALT 65 U/L (9-52) H 02/28/17 07:06 Alkaline Phosphatase 160 U/L (38-126) H 02/28/17 07:06 Total Protein 5.7 g/dL (6.3-8.2) L 02/28/17 07:06 Albumin 3.1 g/dL (3.5-5.0) L 02/28/17 07:06 Microbiology 02/27/17 14:00 Incision Gram Stain - Preliminary 02/27/17 14:00 Incision Wound Culture - Preliminary Presumptive Staph aureus 02/27/17 03:00 Thigh - Left Gram Stain - Preliminary 02/27/17 03:00 Thigh - Left Wound Culture - Preliminary Presumptive Staph aureus 02/27/17 02:16 Blood Blood Culture - Preliminary No Growth after 24 hours 02/27/17 14:00 Thigh - Left Anaerobic Culture - Preliminary Assessment and Plan (1) Abscess of left thigh Narrative/Plan: 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 She relates in the past she's been told that she has significant venous stasis and varicose veins. She does try to wear some stockings but the thigh highs often fall down. Current. Is loose and has not been helping. She does relate that she shaves occasionally. But never stays this high and her thighs and does not shave her pubic area. Advice about razor care that was given with the current process that appears to be staphylococcal or streptococcal in nature She'll be seen by the surgeons today and bedside debridement is planned and deep culture should be obtained. For antimicrobial therapy was utilized vancomycin and cefazolin for now until we have further data. She failed Bactrim therapy Preliminary data reveals staph. Cultures will further help drive therapy. post-incision and drainage device for wound care depending on the findings. Multivitamin with zinc is added She is up-to-date with her tetanus vaccine Pain control is adequate at this time. We'll follow after her surgical incision and drainage. Status: Acute (2) Cellulitis Status: Acute (3) Failure of outpatient treatment Status: Acute
[2017-03-01 07:48] LABS: Anion Gap 7 mmol/L; Blood Urea Nitrogen 11 mg/dL (7-17); Calcium 8.9 mg/dL (8.4-10.2); Carbon Dioxide 25 mmol/L (22-30); Chloride 108 mmol/L (98-107); Glucose 109 mg/dL (74-99); Non-African American GFR(MDRD) >60 (>60 ml/min/1.73 sqM); Potassium 4.4 mmol/L (3.5-5.1); Sodium 140 mmol/L (137-145)
[2017-03-01] MEDS: ceFAZolin 2 GM in SODIUM CHLORIDE 0.9% 100 ML IVPB SCH (08:01)
[2017-03-01] MEDS: FAMOTIDINE 20 MG TAB PO SCH (08:04)
[2017-03-01] MEDS: HEPARIN SODIUM,PORCINE 5,000 UNIT/ML 1 ML VIAL SQ SCH (08:04)
[2017-03-01] MEDS ORDERED: VANCOMYCIN TROUGH DUE 1 EACH MISC MISCELLANE ONE (11:00)
--- NOTE | 2017-03-01 11:49 | P.DS ---
Providers Date of admission: 02/27/17 14:16 Expected date of discharge: 03/01/17 Attending physician: Sander Russo Consults: 02/27/17 10:01 Consult Physician Urgent Consulting Provider: Dom Arias Consult Reason/Comments: Abscess antibiotic recommendations left thigh Do you want consulting provider notified?: Yes Primary care physician: Physician Nonstaff Hospital Course: 41-year-old woman resents to emergency center because of significant difficulties with her left leg. The patient relates that she's been having difficulty since early in February with her left leg. She developed some swelling into the left groin area as well as some small lesions on the leg. She was evaluated in the emergency center duplex was negative for deep venous thrombosis likely had a mild enlarged lymph node as well as evidence of some varicosities. Treated with some antibiotic therapy with sulfa. Despite multiple days of sulfa she is now worsened. She developed multiple abscesses to become increasing painful on the medial aspect of the thigh. The patient relates she does shave her legs. We'll spend several weeks and actually doesn' t shave up on this part of her thigh. 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 She does not shower at the facility. But she does utilize the restroom. Does not recall any specific trauma to the area. Does have animal exposures only to a rabbit. Patient was seen by Dr. Arias started on IV vancomycin and Levaquin. Patient does have significant venous stasis and varicose veins on the left leg. Patient additionally underwent an bedside incision and drainage of the abscess on the left leg by the wound cultures did come back presumptive staph aureus. Over the course of the hospitalization there was a significant improvement with less redness less drainage from the site. It was reinforced to the patient that she would need to follow-up with the vascular surgeon as the patient does have evidence of some varicosities. Patient did have a Doppler study done the emergency room was negative for evidence of a DVT at did show mild enlarged lymph node with evidence of varicosities which need to be addressed in the outpatient setting with the vascular surgeon. Patient did verbalize understanding Impression discharge diagnosis Doppler studies left leg negative for evidence of a DVT positive mild enlarged lymph node with evidence of some varicosities Present on admission cellulitis with abscess left upper thigh failed outpatient treatment on Bactrim nontraumatic Doppler of the left lower extremity February 19 no evidence of a DVT Obesity BMI 35 Status post incision and drainage of the left thigh abscess 2 done at the bedside on Feb 27 Wound culture positive for presumptive staph for aures The above impression and plan of care have been discussed and directed by signing physician. Chaya Liao nurse practitioner acting as scribe for signing physician. Patient Condition at Discharge: Fair Plan - Discharge Summary New Discharge Prescriptions: New Multivitamins, Thera [Multivitamin (formulary)] 1 each PO DAILY@1200 tab Cephalexin [Keflex] 500 mg PO Q6HR #40 cap Discontinued Sulfamethox-Tmp 800-160Mg [Bactrim DS 800-160 mg] 1 tab PO Q12HR #20 tab Discharge Medication List Cephalexin [Keflex] 500 mg PO Q6HR #40 cap 03/01/17 [Rx] Multivitamins, Thera [Multivitamin (formulary)] 1 each PO DAILY@1200 tab [Rx] Follow up Appointment(s)/Referral(s): Nonstaff,Physician [Primary Care Provider] - 1-2 days Sander Russo MD [STAFF PHYSICIAN] - 1 Week Dom Arias MD [STAFF PHYSICIAN] - 1 Week Activity/Diet/Wound Care/Special Instructions: No shaving upper thigh left leg Shower daily Dry dressing to the affected sites change daily Discharge Disposition: HOME SELF-CARE
[2017-03-01 11:57] VITALS: BP 130/78; PULSE 67; RESP 20; TEMP 97.6
[2017-03-01] MEDS: VANCOMYCIN 1,750 MG in SODIUM CHLORIDE 0.9% 250 ML IVPB SCH (12:07)
[2017-03-01] MEDS: MULTIVITAMINS, THERA 1 EACH TAB PO SCH (12:38)
== END 2017-03-01 15:21 | disposition home or self-care (01) | DRG 603 ==
LOC: EC 01:27 → 6PED 05:06 → OBSVTOIN 14:16
PROVIDERS: ADMIT Surgery; ATTEND Surgery
PROC: 0H9JXZZ Drainage of Left Upper Leg Skin, External Approach (ICD-10-PCS; principal; 2017-02-27)
DX: L02.416 Cutaneous abscess of left lower limb (principal); I80.9 Phlebitis and thrombophlebitis of unspecified site; B95.61 Methicillin susceptible Staphylococcus aureus infection as the cause of diseases classified elsewhere; F41.9 Anxiety disorder, unspecified; I83.90 Asymptomatic varicose veins of unspecified lower extremity; R59.9 Enlarged lymph nodes, unspecified; L03.116 Cellulitis of left lower limb; E66.9 Obesity, unspecified; I87.8 Other specified disorders of veins; Z88.1 Allergy status to other antibiotic agents; Z88.8 Allergy status to other drugs, medicaments and biological substances; Z90.49 Acquired absence of other specified parts of digestive tract; Z82.49 Family history of ischemic heart disease and other diseases of the circulatory system; Z68.35 Body mass index [BMI] 35.0-35.9, adult
CPT/HCPCS: 36415; 80048; 80053; 80202; 85025; 87040; 87070; 87075; 87077; 87186; 87205; 96361; 96365; 96366; 96375; 99284

== ENCOUNTER 2024-05-04 08:05 | Emergency (ER) | payer BC, OTHER ==
--- NOTE | 2024-05-04 08:28 | ED ---
Abdominal Pain HPI - General Chief Complaint: Abdominal Pain Stated Complaint: R sided abd pain Time Seen by Provider: 05/04/24 08:20 Source: patient, RN notes reviewed Mode of arrival: ambulatory Limitations: no limitations - History of Present Illness Initial Comments: 28-year-old female presents to the emergency department with a chief complaint of right lower quadrant pain. She states that she has intermittent sharp pain to the area that is not precipitated by anything. She states that in 2013 she had bilateral Esure devices placed and she feels they may have migrated. He also denies possibility of as she had NovaSure procedure done. She denies uterine bleeding, nausea vomiting diarrhea fever. Denies radicular symptoms, back pain, neuropathies, and saddle anesthesias. She denies other complaints. - Related Data Previous Rx's Medication Instructions Recorded Cephalexin [Keflex] 500 mg PO Q6HR #40 cap 03/01/17 Multivitamins, Thera [Multivitamin 1 each PO DAILY@1200 tab 03/01/17 (formulary)] Allergies Allergy/AdvReac Type Severity Reaction Status Date / Time ibuprofen Allergy Swelling Verified 05/04/24 08:09 amoxicillin AdvReac DIZZINESS Verified 05/04/24 08:09 Review of Systems ROS Statement: Those systems with pertinent positive or pertinent negative responses have been documented in the HPI. ROS Other: All systems not noted in ROS Statement are negative. Past Medical History Past Medical History: No Reported History History of Any Multi-Drug Resistant Organisms: None Reported Past Surgical History: Cholecystectomy, Tonsillectomy, Uterine Ablation Additional Past Surgical History / Comment(s): e-sureanabella Past Anesthesia/Blood Transfusion Reactions: No Reported Reaction Past Psychological History: Anxiety Smoking Status: Never smoker Past Alcohol Use History: None Reported Past Drug Use History: None Reported - Past Family History Father Family Medical History: Coronary Artery Disease (CAD) General Exam Limitations: no limitations General appearance: alert, in no apparent distress Head exam: Present: atraumatic, normocephalic, normal inspection Eye exam: Present: normal appearance, PERRL, EOMI. Absent: scleral icterus, c onjunctival injection, periorbital swelling ENT exam: Present: normal exam, mucous membranes moist Neck exam: Present: normal inspection. Absent: tenderness, meningismus, lymphadenopathy Respiratory exam: Present: normal lung sounds bilaterally. Absent: respiratory distress, wheezes, rales, rhonchi, stridor Cardiovascular Exam: Present: regular rate, normal rhythm, normal heart sounds. Absent: systolic murmur, diastolic murmur, rubs, gallop, clicks GI/Abdominal exam: Present: soft, normal bowel sounds. Absent: distended, tenderness, guarding, rebound, rigid Extremities exam: Present: normal inspection, full ROM, normal capillary refill. Absent: tenderness, pedal edema, joint swelling, calf tenderness Back exam: Present: normal inspection Neurological exam: Present: alert, oriented X3, CN II-XII intact Psychiatric exam: Present: normal affect, normal mood Skin exam: Present: warm, dry, intact, normal color. Absent: rash Course Vital Signs 05/04/24 05/04/24 08:06 09:31 Temperature 98.5 F Pulse Rate 82 68 Respiratory 20 16 Rate Blood Pressure 150/99 135/92 O2 Sat by Pulse 98 98 Oximetry Medical Decision Making - Medical Decision Making Was pt. sent in by a medical professional or institution (, PA, FOUR SLIDE MACHINE SETTER, urgent care, hospital, or alf...) When possible be specific @ -No Did you speak to anyone other than the patient for history (EMS, parent, family, police, friend...)? What history was obtained from this source @ -No Did you review nursing and triage notes (agree or disagree)? Why? @ -I reviewed and agree with nursing and triage notes Were old charts reviewed (outside hosp., previous admission, EMS record, old EKG, old radiological studies, urgent care reports/EKG's, alf records)? Report findings @ -No old charts were reviewed Differential Diagnosis (chest pain, altered mental status, abdominal pain women, abdominal pain men, vaginal bleeding, weakness, fever, dyspnea, syncope, headache, dizziness, GI bleed, back pain, seizure, CVA, palpatations, mental health, musculoskeletal)? @ -Differential Abdominal Pain Women: Appendicitis, Cholecystitis, diverticulosis, ischemic bowel, pancreatitis, hepatitis, UTI, gastroenteritis, AAA, incarcerated hernia, bowel obstruction, constipation, inflammatory bowel, hepatitis, peptic ulcer disease, splenic infarction, perforated viscus, vulvitis, ovarian torsion, PID, kidney stone, placenta abruption, this is not meant to be an all-inclusive list EKG interpreted by me (3pts min.). @ -None X-rays interpreted by me (1pt min.). @ -None done CT interpreted by me (1pt min.). @ -CT abdomen pelvis showing fatty liver disease, no other acute intra-abdominal process U/S interpreted by me (1pt. min.). @ -None done What testing was considered but not performed or refused? (CT, X-rays, U/S, labs)? Why? @ -None What meds were considered but not given or refused? Why? @ -None Did you discuss the management of the patient with other professionals (professionals i.e. , PA, FOUR SLIDE MACHINE SETTER, lab, RT, psych nurse, social director, co chairman, teacher, commercial credit officer, correctional case manager)? Give summary @ -No Was smoking cessation discussed for >3mins.? @ -No Was critical care preformed (if so, how long)? @ -No Were there social determinants of health that impacted care today? How? (Homelessness, low income, unemployed, alcoholism, drug addiction, andre sportation, low edu. Level, literacy, decrease access to med. care, longterm, rehab)? @ -No Was there de-escalation of care discussed even if they declined (Discuss DNR or withdrawal of care, Hospice)? DNR status @ -No What co-morbidities impacted this encounter? (DM, HTN, Smoking, COPD, CAD, Cancer, CVA, ARF, Chemo, Hep., AIDS, mental health diagnosis, sleep apnea, morbid obesity)? @ -Cholecystectomy Was patient admitted / discharged? Hospital course, mention meds given and route, prescriptions, significant lab abnormalities, going to OR and other pertinent info. @ -[Discharge patient presented for abdominal pain patient's is negative workup at this time including urine, labs and CT. Patient's concern that her Essure procedure may be causing some pain. She will follow-up with CREDIT OFFICE MANAGER return parameters sabine. Undiagnosed new problem with uncertain prognosis? @ -No Drug Therapy requiring intensive monitoring for toxicity (Heparin, Nitro, Insulin, Cardizem)? @ -No Were any procedures done? @ -No Diagnosis/symptom? @ -abdominal pain Acute, or Chronic, or Acute on Chronic? @ -acute Uncomplicated (without systemic symptoms) or Complicated (systemic symptoms)? @ -uncomplicated Side effects of treatment? @ -No Exacerbation, Progression, or Severe Exacerbation? @ -No Poses a threat to life or bodily function? How? (Chest pain, USA, VT, pneumonia, PE, COPD, DKA, ARF, appy, cholecystitis, CVA, Diverticulitis, Homicidal, Suicidal, threat to staff... and all critical care pts) @ -No - Lab Data Result diagrams: 05/04/24 08:28 05/04/24 08:28 Lab Results 05/04/24 05/04/24 05/04/24 Range/Units 08:28 08: 08:28 WBC 8.7 (3.8-10.6) k/uL RBC 4.68 (3.80-5.40) m/uL Hgb 14.3 (11.4-16.0) gm/dL Hct 44.2 (34.0-46.0) % MCV 94.5 (80.0-100.0) fL MCH 30.6 (25.0-35.0) pg MCHC 32.3 (31.0-37.0) g/dL RDW 12.3 (11.5-15.5) % Plt Count 266 (150-450) k/uL MPV 6.9 Neutrophils % 44 % Lymphocytes % 43 % Monocytes % 5 % Eosinophils % 5 % Basophils % 0 % Neutrophils # 3.9 (1.3-7.7) k/uL Lymphocytes # 3.8 (1.0-4.8) k/uL Monocytes # 0.5 (0-1.0) k/uL Eosinophils # 0.4 (0-0.7) k/uL Basophils # 0.0 (0-0.2) k/uL Sodium 138 (137-145) mmol/L Potassium 4.2 (3.5-5.1) mmol/L Chloride 105 (98-107) mmol/L Carbon Dioxide 25 (22-30) mmol/L Anion Gap 8 mmol/L BUN 10 (7-17) mg/dL Creatinine 0.77 (0.52-1.04) mg/dL Est GFR (CKD-EPI)AfAm >90 (>60 ml/min/1.73 sqM) Est GFR (CKD-EPI)NonAf >90 (>60 ml/min/1.73 sqM) Glucose 112 H (74-99) mg/dL Plasma Lactic Acid Sacha 0.8 (0.7-2.0) mmol/L Calcium 9.7 (8.4-10.2) mg/dL Total Bilirubin 0.9 (0.2-1.3) mg/dL AST 52 H (14-36) U/L ALT 80 H (4-34) U/L Alkaline Phosphatase 78 (38-126) U/L Total Protein 7.4 (6.3-8.2) g/dL Albumin 4.6 (3.5-5.0) g/dL Lipase 76 (23-300) U/L Urine Color Urine Appearance (Clear) Urine pH (5.0-8.0) Ur Specific [place] (1.001-1.035) Urine Protein (Negative) Urine Glucose (UA) (Negative) Urine Ketones (Negative) Urine Blood (Negative) Urine Nitrite (Negative) Urine Bilirubin (Negative) Urine Urobilinogen (<2.0) mg/dL Ur Leukocyte Esterase (Negative) 05/04/24 Range/Units 09:53 WBC (3.8-10.6) k/uL RBC (3.80-5.40) m/uL Hgb (11.4-16.0) gm/dL Hct (34.0-46.0) % MCV (80.0-100.0) fL MCH (25.0-35.0) pg MCHC (31.0-37.0) g/dL RDW (11.5-15.5) % Plt Count (150-450) k/uL MPV Neutrophils % % Lymphocytes % % Monocytes % % Eosinophils % % Basophils % % Neutrophils # (1.3-7.7) k/uL Lymphocytes # (1.0-4.8) k/uL Monocytes # (0-1.0) k/uL Eosinophils # (0-0.7) k/uL Basophils # (0-0.2) k/uL Sodium (137-145) mmol/L Potassium (3.5-5.1) mmol/L Chloride (98-107) mmol/L Carbon Dioxide (22-30) mmol/L Anion Gap mmol/L BUN (7-17) mg/dL Creatinine (0.52-1.04) mg/dL Est GFR (CKD-EPI)AfAm (>60 ml/min/1.73 sqM) Est GFR (CKD-EPI)NonAf (>60 ml/min/1.73 sqM) Glucose (74-99) mg/dL Plasma Lactic Acid Sacha (0.7-2.0) mmol/L Calcium (8.4-10.2) mg/dL Total Bilirubin (0.2-1.3) mg/dL AST (14-36) U/L ALT (4-34) U/L Alkaline Phosphatase (38-126) U/L Total Protein (6.3-8.2) g/dL Albumin (3.5-5.0) g/dL Lipase (23-300) U/L Urine Color Colorless Urine Appearance Clear (Clear) Urine pH 6.5 (5.0-8.0) Ur Specific [place] 1.026 (1.001-1.035) Urine Protein Negative (Negative) Urine Glucose (UA) Negative (Negative) Urine Ketones Negative (Negative) Urine Blood Negative (Negative) Urine Nitrite Negative (Negative) Urine Bilirubin Negative (Negative) Urine Urobilinogen <2.0 (<2.0) mg/dL Ur Leukocyte Esterase Negative (Negative) Disposition Clinical Impression: Abdominal pain Disposition: HOME SELF-CARE Condition: Stable Instructions (If sedation given, give patient instructions): Abdominal Pain (ED) Additional Instructions: Please return to the Emergency Department if symptoms worsen or any other concerns. Is patient prescribed a controlled substance at d/c from ED?: No Referrals: [facility] [NON-STAFF] - 1-2 days [facility] [NON-STAFF] - 1-2 days Forms: Area PCPs
[2024-05-04] MEDS: SODIUM CHLORIDE 0.9% 500 ML 500 ML IV STA (08:29)
[2024-05-04 08:37] LABS: Basophils % (A) 0 %; Eosinophils # (A) 0.4 k/uL (0-0.7); Eosinophils % (A) 5 %; HCT 44.2 % (34.0-46.0); HGB 14.3 gm/dL (11.4-16.0); Lymphocytes # (A) 3.8 k/uL (1.0-4.8); Lymphocytes % (A) 43 %; MCH 30.6 pg (25.0-35.0); MCHC 32.3 g/dL (31.0-37.0); MCV 94.5 fL (80.0-100.0); Mean Platelet Volume 6.9; Monocytes # (A) 0.5 k/uL (0-1.0); Monocytes % (A) 5 %; Neutrophils # (A) 3.9 k/uL (1.3-7.7); Neutrophils % (A) 44 %; Platelet Count 266 k/uL (150-450); RBC 4.68 m/uL (3.80-5.40); RDW 12.3 % (11.5-15.5); WBC 8.7 k/uL (3.8-10.6)
[2024-05-04 08:59] LABS: ALT 80 U/L (4-34); AST 52 U/L (14-36); African American GFR (CKD) >90 (>60 ml/min/1.73 sqM); Albumin 4.6 g/dL (3.5-5.0); Alkaline Phosphatase 78 U/L (38-126); Anion Gap 8 mmol/L; Blood Urea Nitrogen 10 mg/dL (7-17); Calcium 9.7 mg/dL (8.4-10.2); Carbon Dioxide 25 mmol/L (22-30); Chloride 105 mmol/L (98-107); Glucose 112 mg/dL (74-99); Lipase 76 U/L (23-300); Non-African American GFR(CKD) >90 (>60 ml/min/1.73 sqM); Potassium 4.2 mmol/L (3.5-5.1); Sodium 138 mmol/L (137-145); Total Bilirubin 0.9 mg/dL (0.2-1.3); Total Protein 7.4 g/dL (6.3-8.2)
--- NOTE | 2024-05-04 09:29 | CT ---
EXAMINATION TYPE: CT abdomen pelvis w con DATE OF EXAM: 05/04/2024 9:10 AM COMPARISON: None. CLINICAL INDICATION: Female, 48 years old with history of abdominal pain, Abdominal pain TECHNIQUE:CT scan of the abdomen and pelvis is performed without Oral Contrast and with IV Contrast, patient injected with 100 ml mL of Isovue 370. CT DLP: 1351.5 mGycm, Automated exposure control for dose reduction was used. FINDINGS: LUNG BASES-: No visible nodule. No infiltrate. LIVER/GB: There is evidence of hepatic steatosis and mild hepatomegaly. The gallbladder surgically ab sent. No space occupying hepatic lesion. Biliary tree is of normal caliber. PANCREAS: No inflammation. No distinct mass. SPLEEN: No splenic enlargement. No lesion seen. ADRENALS: No nodule. No thickening. KIDNEYS/BLADDER: No hydronephrosis. No nephrolithiasis. No distinct renal mass. Urinary bladder g rossly unremarkable. BOWEL: Nonvisualization the appendix. Normal bowel caliber. No inflammation. GENITAL ORGANS: No gross abnormality. LYMPH NODES: No greater than 1cm abdominal or pelvic lymph nodes are appreciated. AORTA: No significant abnormality. OSSEOUS STRUCTURES: No significant abnormality is seen. OTHER: No significant additional abnormality is seen. IMPRESSION: 1. There is evidence of hepatic steatosis and mild hepatomegaly. The gallbladder surgically absent. [facility], , 05/04/2024 9:26 AM
[2024-05-04 09:56] LABS: Appearance,Urine Clear (Clear); Bilirubin,Urine Negative (Negative); Blood,Urine Negative (Negative); Color,Urine Colorless; Glucose,Urine (UA) Negative (Negative); Ketones,Urine Negative (Negative); Leukocyte Esterase,Urine Negative (Negative); Nitrite,Urine Negative (Negative); PH, Urine 6.5 (5.0-8.0); Protein,Urine Negative (Negative); Specific Gravity,Urine 1.026 (1.001-1.035); Urobilinogen,Urine <2.0 mg/dL (<2.0)
[2024-05-04 10:17] VITALS: BP 144/91; PULSE 74; RESP 18; TEMP 98.2
== END 2024-05-04 10:17 | disposition home or self-care (01) ==
LOC: EC 08:05
DX: R10.9 Unspecified abdominal pain (principal); Z90.49 Acquired absence of other specified parts of digestive tract; Z88.6 Allergy status to analgesic agent; Z88.0 Allergy status to penicillin
CPT/HCPCS: 36415; 80053; 83605; 83690; 85025; 81003; 74177; 99284; 96360; Q9967